=== PATIENT | female | born 1990 | race Caucasian/White ===

== ENCOUNTER 2021-06-28 11:00 | Inpatient (IN) | payer OTHER ==
[2021-06-28] MEDS ORDERED: morphine SULFATE/PF 0.5 MG/ML (2cc Syringe - QUVA) EP ONE (12:50)
[2021-06-28] MEDS ORDERED: ONDANSETRON 4 MG/2 ML VIAL IVPUSH PRN (12:50)
[2021-06-28 12:51] VITALS: BMI 39.1
[2021-06-28] MEDS ORDERED: ceFAZolin SODIUM 1 GM VIAL ONE (12:56)
[2021-06-28] MEDS ORDERED: morphine SULFATE/PF 0.5 MG/ML (2cc Syringe - QUVA) ONE (12:56)
[2021-06-28] MEDS ORDERED: METOCLOPRAMIDE HCL INJECTION 10 MG/2 ML VIAL ONE (13:04)
[2021-06-28] MEDS ORDERED: ONDANSETRON 4 MG/2 ML VIAL ONE (13:04)
[2021-06-28] MEDS ORDERED: ELECTROLYTE-148 SOLN 500 ML IV ONE (13:05)
[2021-06-28] MEDS ORDERED: CITRIC ACID/SODIUM CITRATE 30 ML UNIT-DOSE CUP PO ONE (13:05)
[2021-06-28] MEDS ORDERED: ELECTROLYTE-148 SOLN 1,000 ML IV SCH (13:15)
[2021-06-28] MEDS ORDERED: ePHEDrine SULFATE 50 MG/1 ML AMPULE ONE (13:23)
[2021-06-28] MEDS ORDERED: PHENYLEPHRINE HCL 10 MG/1 ML SINGLE DOSE VIAL ONE (13:35)
[2021-06-28] MEDS ORDERED: OXYTOCIN 10 UNITS/ML VIAL ONE ×2 (13:36→14:12)
[2021-06-28] MEDS ORDERED: oxyCODONE HCL 5 MG TABLET PO PRN ×2 (14:27)
[2021-06-28] MEDS ORDERED: METHYLERGONOVINE MALEATE 0.2 MG/1 ML AMP IM PRN (14:27)
[2021-06-28] MEDS ORDERED: IBUPROFEN 800 MG/8 ML IJ IVPB PRN (14:27)
[2021-06-28] MEDS ORDERED: SENNOSIDES/DOCUSATE COMBO (SENNA PLUS) TABLET (UD) PO PRN (14:27)
[2021-06-28] MEDS ORDERED: OXYTOCIN 20 UNITS in 0.9% NS 20 UNIT/1,000 ML INFUS.BAG IV SCH (14:30)
[2021-06-28] MEDS ORDERED: IBUPROFEN 800 MG/8 ML IJ IVPB ONE (15:42)
[2021-06-29] MEDS: SIMETHICONE 80 MG TAB.CHEW (FP) PO PRN ×3 (01:23→19:55)
[2021-06-29] MEDS: IBUPROFEN 600 MG TABLET (FP) PO PRN ×3 (05:03→19:54)
[2021-06-29] MEDS: ACETAMINOPHEN 325 MG TABLET (FP) PO PRN ×3 (05:03→19:54)
[2021-06-29 09:41] LABS: BASO % 0.2 % (0-2.0); EOS % 0.2 % (0-4.5); HEMATOCRIT 30.8 % (32.4-45.2); HEMOGLOBIN 10.2 GM/dL (10.7-15.3); LYMPH % 21.3 % (8-40); MCH 26.4 pg (25.7-33.7); MEAN CELL VOLUME 80.1 fl (80-96); MEAN PLT VOLUME 8.9 fl (7.5-11.1); MONO % 8.5 % (3.8-10.2); NEUT % 69.8 % (42.8-82.8); PLATELET COUNT 205 10^3/uL (134-434); RBC 3.85 M/mm3 (3.60-5.2); RDW 14.8 % (11.6-15.6); WHITE BLOOD COUNT 9.6 K/mm3 (4.0-10.0)
[2021-06-29] MEDS: PRENATAL VITAMINS W/ FOLIC ACID TABLET (FP) PO SCH (10:13)
[2021-06-29] MEDS: LABETALOL HCL 100 MG TABLET (FP) PO SCH ×2 (10:13→21:00)
[2021-06-29] MEDS ORDERED: BISACODYL 10 MG SUPP.RECT RC PRN (14:27)
[2021-06-30] MEDS: IBUPROFEN 600 MG TABLET (FP) PO PRN ×2 (04:37→12:14)
[2021-06-30] MEDS: ACETAMINOPHEN 325 MG TABLET (FP) PO PRN ×2 (04:37→12:14)
[2021-06-30] MEDS: SIMETHICONE 80 MG TAB.CHEW (FP) PO PRN ×2 (04:38→12:14)
[2021-06-30 09:43] VITALS: BP 106/69; PULSE 70; TEMP 98.8
[2021-06-30] MEDS: LABETALOL HCL 100 MG TABLET (FP) PO SCH (10:04)
[2021-06-30] MEDS: PRENATAL VITAMINS W/ FOLIC ACID TABLET (FP) PO SCH (10:04)
== END 2021-06-30 13:00 | disposition home or self-care (01) | DRG 540 ==
LOC: JLDR 11:00 → J3W 16:01
PROVIDERS: ADMIT Obstetrics & Gynecology; ATTEND Obstetrics & Gynecology
PROC: 10D00Z1 Extraction of Products of Conception, Low, Open Approach (ICD-10-PCS; principal; 2021-06-28)
DX: O24.429 Gestational diabetes mellitus in childbirth, unspecified control (principal); O69.1XX0 Labor and delivery complicated by cord around neck, with compression, not applicable or unspecified; O16.4 Unspecified maternal hypertension, complicating childbirth; O26.62 Liver and biliary tract disorders in childbirth; K83.1 Obstruction of bile duct; O36.8130 Decreased fetal movements, third trimester, not applicable or unspecified; Z3A.37 37 weeks gestation of pregnancy; Z37.0 Single live birth
CPT/HCPCS: 36415; 80053; 82962; 85025; 85610; 85730; 86780; 86850; 86900; 86901; 88307-TC; C9803; U0003; U0005